=== PATIENT | female | born 1975 | race American Indian/Alaskan Native ===

== ENCOUNTER 2017-09-04 12:42 | Emergency (ER) | payer OTHER ==
[2017-09-04 14:57] LABS: Basophils # (Auto) 0.1 K/mm3 (0.0-0.1); Basophils % (Auto) 0.7 % (0.0-1.8); Eosinophils % (Auto) 0.4 % (0.0-4.3); Hematocrit 42.1 % (30.3-42.9); Hemoglobin 14.6 gm/dl (10.1-14.3); Lymphocytes # (Auto) 1.6 K/mm3 (1.2-5.4); Lymphocytes % (Auto) 21.3 % (13.4-35.0); Mean Corpuscular HGB Conc 35 % (30-34); Mean Corpuscular Hemoglobin 33 pg (28-32); Mean Corpuscular Volume 94 fl (79-97); Monocytes # (Auto) 0.4 K/mm3 (0.0-0.8); Monocytes % (Auto) 5.5 % (0.0-7.3); Platelet Count 305 K/mm3 (140-440); Red Blood Count 4.46 M/mm3 (3.65-5.03); Red Cell Distribution Width 13.1 % (13.2-15.2)
[2017-09-04 15:14] LABS: BUN/Creatinine Ratio 13; Blood Urea Nitrogen 10 mg/dL (7-17); Calcium 9.5 mg/dL (8.4-10.2); Hemolysis Index 8
[2017-09-04 16:02] LABS: Bacteria,Urine 1+ /HPF (Negative); Bilirubin,Urine NEG (Negative); Blood,Urine NEG (Negative); Color,Urine Yellow (Yellow); Mucus,Urine 3+ /HPF; Urobilinogen,Urine < 2.0 mg/dL (<2.0)
[2017-09-04 16:03] LABS: Amphetamine Screen,Urine PRESUMPTIVE NEGATIVE; Benzodiazepines Screen,Urine PRESUMPTIVE NEGATIVE; Cannabinoid Screen,Urine PRESUMPTIVE NEGATIVE; Cocaine Screen,Urine PRESUMPTIVE NEGATIVE; Methadone Screen,Urine PRESUMPTIVE NEGATIVE; Opiate Screen,Urine PRESUMPTIVE NEGATIVE
[2017-09-04] MEDS ORDERED: ATIVAN IV ONE (16:36)
[2017-09-04] MEDS ORDERED: HALDOL IM ONE (16:36)
[2017-09-04] MEDS ORDERED: APRESOLINE IV ONE (16:37)
--- NOTE | 2017-09-04 16:39 | Emergency Department Report ---
HPI - General Chief Complaint: Psych Time Seen by Provider: 09/04/17 15:40 - HPI HPI: The patient is a 42-year-old female whom presents for evaluation of mental status. The patient admits to expressing thoughts that her father was alive, although he has been there for 5 years. The patient's mother reports that the patient has exhibited constant and severe delusions, insomnia, and withdrawal behavior for the past 2-3 days. The patient admits to not sleeping last night and she began a car the night before, her reason for doing so she cannot explain. The patient denies fever, headache, unexplained weight loss or weight gain, heat or cold intolerance, skin, hair, or nail changes, neuro deficits, homicidal ideations, . ED Past Medical Hx - Past Medical History Previous Medical History?: Yes Hx Psychiatric Treatment: Yes (DEPRESSION) Additional medical history: VAGINAL DELIVERY - Surgical History Past Surgical History?: No - Social History Smoking Status: Never Smoker Substance Use Type: Alcohol ED Review of Systems ROS: Stated complaint: DEPRESSION/ALCOHOLISM Other details as noted in HPI Constitutional: denies: fever ENT: denies: throat or neck pain Respiratory: denies: cough, shortness of breath Cardiovascular: denies: chest pain Endocrine: denies unexplained weight loss or gain Gastrointestinal: denies: abdominal pain, nausea Genitourinary: denies: dysuria Musculoskeletal: denies: leg swelling Skin: denies: rash Neurological: denies: headache Hematological/Lymphatic: denies: easy bleeding or easy bruising Psych: reports delusions and odd thinking (per mother) Physical Exam - Physical Exam Vital Signs: Vital Signs 09/04/17 14:07 Temperature 98.5 F Pulse Rate 113 H Respiratory 20 Rate Blood Pressure 163/113 O2 Sat by Pulse 100 Oximetry Physical Exam: General: well-nourished, well-developed, no acute distress Head: Normocephalic, atraumatic Eyes: normal sclera ENT: Mucous membranes are pink and moist Neck: trachea midline, neck supple, No neck stiffness, no cervical adenopathy Respiratory: Breath sounds equal bilaterally, no wheezing, rales, or rhonchi Cardio: S1 and S2 present, no murmurs, rubs, gallops, capillary refill is brisk Abdomen: Normoactive bowel sounds, soft abdomen, no rigidity, no guarding or rebound tenderness Musc: No pitting edema Skin: No rash Neuro: no facial drooping, normal speech Psych: Flat affect, poor insight, patient withdrawn, depressed mood, paranoid, delusional ED Course Vital Signs 09/04/17 14:07 Temperature 98.5 F Pulse Rate 113 H Respiratory 20 Rate Blood Pressure 163/113 O2 Sat by Pulse 100 Oximetry ED Medical Decision Making - Lab Data Result diagrams: 09/04/17 14:41 09/04/17 14:41 - Medical Decision Making The patient was seen and examined by myself. The patient is placed on a surveillance system monitor and continuous pulse ox. On initial evaluation, the patient was found to be in no distress. Labs are obtained. Lab results are grossly unremarkable. The patient is medically clear. Mental health is consulted. Mental health evaluates the patient and agrees that the patient is positive for findings consistent with new onset acute psychosis versus schizoaffective disorder. A 1013 is completed. The patient is restrained due to agitation and noncompliance. The patient will be admitted to a psychiatric facility once bed placement is obtained. Critical care attestation.: If time is entered above; I have spent that time in minutes in the direct care of this critically ill patient, excluding procedure time. ED Disposition Clinical Impression: Hypertensive urgency, Acute psychosis Disposition: [id number]/TX-[id number] PSY HOSP/PSY UNIT Is pt being admited?: No Does the pt Need Aspirin: No Condition: Fair Referrals: PRIMARY CARE [Primary Care Provider] - 3-5 Days Time of Disposition: 16:37
[2017-09-04] MEDS ORDERED: ATIVAN IM ONE (16:48)
[2017-09-04] MEDS ORDERED: MILK OF MAGNESIA PO PRN (17:55)
[2017-09-04] MEDS ORDERED: TYLENOL PO PRN (17:55)
[2017-09-04] MEDS ORDERED: ALUM-MAG HYDROX-SIMETH 200-200-20MG/5ML PO PRN (17:55)
[2017-09-04 20:41] VITALS: BP 93/57
== END 2017-09-04 20:51 ==
LOC: ED 12:42
DX: I10 Essential (primary) hypertension (principal); F23 Brief psychotic disorder
CPT/HCPCS: 36415; 80048; 80307; 81001; 84703; 85025; 96372; 99283; G0480; J1630; J2060; 80320